=== PATIENT | female | born 1935 | race Caucasian/White ===

== ENCOUNTER 2024-08-08 16:11 | Emergency (ER) | payer MEDICARE, MEDICAID ==
[2024-08-08] MEDS ORDERED: Lidocaine 1% w/Epinephrine 1:200K 30 ML VIAL ONE (18:11)
[2024-08-08] MEDS ORDERED: Boostrix 0.5 ML (Tdap) VIAL (>/=7 yrs of age) ONE (19:43)
[2024-08-09] MEDS ORDERED: Ventolin HFA Inhaler 60 PUFF INHALER ONE (02:21)
== END 2024-08-09 02:56 | disposition home or self-care (01) ==
LOC: CSHERS 16:11
DX: S01.01XA Laceration without foreign body of scalp, initial encounter (principal); I13.2 Hypertensive heart and chronic kidney disease with heart failure and with stage 5 chronic kidney disease, or end stage renal disease; I50.9 Heart failure, unspecified; N18.9 Chronic kidney disease, unspecified; Z55.0 Illiteracy and low-level literacy; Z23 Encounter for immunization; W19.XXXA Unspecified fall, initial encounter
CPT/HCPCS: 12001; 70450; 71045; 72125; 90471; 90715